=== PATIENT | male | born 1945 | race Caucasian/White ===

== ENCOUNTER → 2018-10-04 09:28 | Outpatient (POV) | payer MEDICARE, BC, SELFPAY | PROVIDERS: Visit Provider Dermatology | DX: Z00.00 Encounter for general adult medical examination without abnormal findings (principal) ==

== ENCOUNTER 2020-09-01 09:37 | Emergency (ER) | payer MEDICARE, BC, SELFPAY ==
[2020-09-01 09:48] VITALS: BP 124/74; PULSE 73; RESP 20; TEMP 36.6; O2SAT 96; BMI 26.2
--- NOTE | 2020-09-01 10:18 | HMH.EDUTC ---
[facility] [place] Clinical Impression: Encounter for laboratory testing for COVID-19 virus Disposition: Home, Self-Care Condition on Discharge: Good Instructions: Common Cold, DI for Viral Upper Respiratory Infection -- Adult, Preventing the Spread of Coronavirus Discharge Instructions Additional Instructions: *Monitor Temp, Over the counter Motrin or Tylenol as directed/as needed Tylenol every 4 hours and Motrin every 6 hours (as long as your family doctor has told you that you can take it) for fever or pain. and straight to ER if unable to lower temp less than 101.0 after medication given *Warm salt water gargles may help to soothe the throat *Throat Lozenges *Warm fluids like tea with honey may help to soothe the throat *Sleep elevated *Humidifier/Vaporizer Follow up IMMEDIATELY for new or worsening symptoms or no Noticeable improvement over the next 48-72 hours. 911 for difficulty breathing or swallowing You was tested for today for COVID19 your test result should be back later this evening, you may call back later this evening to see if your test results are back and the result You was given a handout with instructions for Self Quarantine and Self isolation for while you wait on test results and what to do if they are positive Referrals: Tomer Jensen MD [Primary Care Provider] - As needed Time of Disposition: 10:22 Medical Decision Making - Tate Inquiry Pt receiving controlled substance: No Tate was queried for this patient: No Vital Signs: 09/01/20 09:48 Temperature 97.9 F Temperature Source Oral Pulse Rate [Radial] 73 Respiratory Rate 20 Blood Pressure [Right Arm] 124/74 Blood Pressure Mean [Right Arm] 90 Blood Pressure Source [Right Arm] Automatic Cuff Blood Pressure Position [Right Arm] Sitting 02 Sat by Pulse Oximetry 96 Oxygen Delivery Method Room Air Orders (Tests/Meds): ORDERS Category Date Time Status Covid-19 Nasal PCR ([facility]) Routine Lab 09/01/20 09:47 Received [facility] [place] - General Stated complaint: covid test Time Seen by Provider: 09/01/20 10:18 Mode of Arrival: Ambulatory Source of Information: Patient Limitations: No Limitations Description of Symptoms (Recalled from Triage Doc. by RN): Has a cold and just wants to make sure he doesn't have COVID HEENT Symptoms (Recalled from RN notes): Yes Resp Symptoms (Recalled from RN notes): No Skin Symptoms (Recalled from RN notes): No MS Symptoms (Recalled from RN notes): No Functional Status (Recalled from RN notes): wnl - History of Present Illness Provider Complaint: Patient states that he has had a little cold states that he hasnt had any exposure to COVID that he is aware of but wanted to get checked to make sure that he doesnt have it or spreading it to anyone so he come in to get checked - Related Data Allergies Allergy/AdvReac Type Severity Reaction Status Date / Time No Known Allergies Allergy Unknown Uncoded 10/19/17 14:37 - Worker's Comp Is this a Worker's Comp case?: No [facility] History - Hepatitis A Screen Drug use history?: No High risk sexual behaviors?: No History of sexually transmitted infection?: No Currently employed?: No Childcare worker?: No Do you have indoor plumbing?: Yes Do you have electricity?: Yes Attestation statement:: This patient has been screened for Hepatitis A risk factors. I have reviewed the patient's past medical history: Yes - Social History Alcohol Intake: never Occupational Status: retired ROS Obtained: Yes All systems reviewed & no additional complaints, Yes Systems reviewed as appropriate & no additional complaints - Constitutional Constitutional: Reports system reviewed and no additional complaints, except as docu, Denies body ache, Denies chills, Denies fever(s), Denies headache(s) - ENT Ears, Nose, Mouth, and Throat: Reports system reviewed and no additional complaints, except as docu, Reports nasal congestion, Reports nasal discharge, Denies sinus pain, D
[2020-09-01 10:32] VITALS: BP 124/74; PULSE 73; RESP 20; TEMP 36.6; O2SAT 96
== END 2020-09-01 10:33 | disposition home or self-care (01) ==
PROVIDERS: Emergency Provider Nurse Practitioner; PCP Family Medicine
DX: Z20.828 Contact with and (suspected) exposure to other viral communicable diseases (principal)
CPT/HCPCS: 99201; U0003

== ENCOUNTER 2020-12-05 08:00 | Outpatient (RCR) | payer MEDICARE, BC, SELFPAY | END 2020-12-05 08:05 | disposition home or self-care (01) | LOC: PT 08:00 | PROVIDERS: PCP Family Medicine; Visit Provider Orthopaedic Surgery | DX: M25.562 Pain in left knee (principal); M25.561 Pain in right knee; Z96.653 Presence of artificial knee joint, bilateral | CPT/HCPCS: 97010; 97014; 97110; 97140; 97163; 97164; 97530; G0283 ==

== ENCOUNTER → 2021-03-12 08:28 | Outpatient (CLI) | payer MEDICARE, BC, SELFPAY ==
[2021-03-12 08:32] LABS: Adenovirus F 40/41, stool Not Detected (NotDetected); Astrovirus Not Detected (NotDetected); Campylobacter Not Detected (NotDetected); Clostridium Difficile A/B, PCR Not Detected (NotDetected); Cryptosporidium Not Detected (NotDetected); Cyclospora Cayetanesis Not Detected (NotDetected); Entamoeba histolytica Not Detected (NotDetected); Enteroaggregative E coli Not Detected (NotDetected); Enteropathogenic E coli Not Detected (NotDetected); Enterotoxigenic E coli Not Detected (NotDetected); Giardia lamblia Not Detected (NotDetected); Norovirus Not Detected (NotDetected); Plesimonas Shigalloides, PCR Not Detected (NotDetected); Rotavirus A Not Detected (NotDetected); Salmonella, PCR Not Detected (NotDetected); Sapovirus Not Detected (NotDetected); Shiga-like toxin E coli Not Detected (NotDetected); Shigella Enterovasive E coli Not Detected (NotDetected); Vibrio Cholerae Not Detected (NotDetected); Vibrio, PCR Not Detected (NotDetected); Yersinia Entercolitica, PCR Not Detected (NotDetected)
== END ==
PROVIDERS: Visit Provider Family Medicine
DX: R19.7 Diarrhea, unspecified (principal)
CPT/HCPCS: 87506

== ENCOUNTER → 2021-05-05 09:40 | Outpatient (CLI) | payer MEDICARE, BC, SELFPAY | PROVIDERS: Visit Provider Surgery | DX: Z01.812 Encounter for preprocedural laboratory examination (principal); Z12.11 Encounter for screening for malignant neoplasm of colon; Z20.822 Contact with and (suspected) exposure to COVID-19; R19.7 Diarrhea, unspecified | CPT/HCPCS: U0003 ==

== ENCOUNTER 2021-05-07 06:28 | Day surgery (SDC) | payer MEDICARE, BC, SELFPAY ==
[2021-04-30 13:58] VITALS: BMI 26.2
[2021-05-07] VITALS (7 sets, daily range): BP systolic 107–136; BP diastolic 71–81; PULSE 61–81; RESP 16–18; TEMP 36.1–36.6; O2SAT 92–96
--- NOTE | 2021-05-07 07:50 | HMH.SCOPE ---
- Procedure: Date: 05/07/21 Patient Date of :: 1945 Procedure Performed:: Total colonoscopy to terminal ileum with biopsies Indications:: Patient is a 75-year-old male referred by Dr. Jensen for colonoscopy. Patient states that for about 6 weeks he has been having diarrhea and multiple loose stools per day. He states that he was checked for stool infection which was negative. He denies pain. Denies bleeding. He did undergo colonoscopy by Dr. Ordaz on 11/26/2005 and had a hyperplastic polyp removed from the descending colon and interestingly 3-year follow-up colonoscopy was recommended. Dr. Ordaz performed colonoscopy attempt on 01/10/2015 and he had some diverticulosis but could not advance the colonoscope proximal to 50 cm. Patient underwent barium enema which was negative. Performing Provider:: Matheus Carr MD Referring Provider:: Noah Jensen MD Sedation:: MAC sedation Procedure:: Patient was taken to endoscopy procedure room. He was positioned in lateral decubitus position. Adequate intravenous sedation was achieved. Digital examination was performed which revealed normal sphincter tone. He did have rather large, uniformly enlarged, firm prostate. Variable stiffness Olympus colonoscope was inserted via the anus. Was advanced to the cecum. Colonic preparation was good. Ileocecal valve and appendiceal orifice were clearly identified. Colonoscope was advanced into the terminal ileum which appeared grossly normal. As the colonoscope was slowly withdrawn through the colon careful surveillance was carried out. Due to his history random right and left biopsies were obtained to assess for microscopic colitis. However colonic mucosa appeared normal. There was a minor mucosal irregularity at the sigmoid which was biopsied with cold biopsy forceps and sent as sigmoid biopsy. There were a few sigmoid diverticuli. Retroflexion within the rectum revealed no evidence of any pathologic internal hemorrhoids. Colonoscope was withdrawn. Findings:: Rare sigmoid diverticulosis Firm uniformly enlarged prostate Otherwise normal colonoscopy to terminal ileum Recommendations:: No obvious source for the alteration of bowel habits on his colonoscopy. It is possible he could have some degree of intermittent partial sigmoid volvulus. Complications:: None immediately apparent Estimated blood obtained (mL): 3
--- NOTE | 2021-05-07 08:04 | P.PN_ITS ---
[facility] Anesthesia Checklist - Patient Identification Patient Identification: Arm Band - Structural Data Admitted From: Home Planned Operative Procedure/s: Colonoscopy Consent for Planned Operative Procedure(s) Verified: Yes Verified Documents: Surgical Consent, History and Physical - NPO Status Verified Time NPO: 00:00 - Airway Assessment C-Spine Mobility Assessed: Yes TMJ Mobility Assessed: Yes Dentition: Good Dentition - Neurological Assessment Level of Consciousness: Awake, Alert - Anesthesia Plan Anesthesia Risk discussed: Yes Anesthesia Plan: Verified Anesthesia Type: MAC [facility] History Medical History: Reports:: Gastroesophageal Reflux Disease(GERD), Hyperlipidemia Denies:: Cancer, Diabetes Mellitus Type 1, Diabetes Mellitus Type 2, MRSA, Seizures *Have you ever received a pneumonia vaccine?: Yes *Have you received a flu vaccine this season?: Yes Anesthesia experience/problems:: None Laterality Cases: Bilateral: Total Knee Replacement Other Surgeries: Yes: Colonoscopy Amputation: No Fractures: No - *Social History Smoking Status: Never smoker Alcohol Intake: never Alcohol Intake Frequency:: holidays/special occasions only Substance Use Type: denies use *Occupational Status:: retired Housing: house Household Members: spouse *Travel in the last 8 weeks: None Family Hx:: No significant family history
== END 2021-05-07 08:44 | disposition home or self-care (01) ==
LOC: OUTP 06:30
PROVIDERS: PCP Family Medicine; Visit Provider Surgery
PROC: 0DJD8ZZ Inspection of Lower Intestinal Tract, Via Natural or Artificial Opening Endoscopic (ICD-10-PCS; principal; 2021-05-07 07:30)
DX: K57.30 Diverticulosis of large intestine without perforation or abscess without bleeding (principal); K59.1 Functional diarrhea; Z79.899 Other long term (current) drug therapy; N40.0 Benign prostatic hyperplasia without lower urinary tract symptoms
CPT/HCPCS: 45380; 88305

== ENCOUNTER → 2021-12-02 13:41 | Outpatient (CLI) | payer MEDICARE, BC, SELFPAY | PROVIDERS: PCP Psychiatry & Neurology Sleep Medicine; Visit Provider Nurse Practitioner | DX: Z20.822 Contact with and (suspected) exposure to COVID-19 (principal) | CPT/HCPCS: C9803; U0003; U0005 ==

== ENCOUNTER → 2022-10-06 08:04 | Outpatient (POV) | payer MEDICARE, BC, SELFPAY | PROVIDERS: Visit Provider Dermatology | DX: Z00.00 Encounter for general adult medical examination without abnormal findings (principal) ==

== ENCOUNTER 2022-11-05 12:09 | Emergency (ER) | payer MEDICARE, BC, SELFPAY ==
--- NOTE | 2022-11-05 12:09 | ECG_ITS ---
APPROVED REPORT Exam: Resting ECG HR:59 bpm ECG Measurements Heart Rate [address] 169 P 38 QRSd 97 QRS 35 QT 387 T 50 QTc 386 Conclusion SINUS BRADYCARDIA BORDERLINE ECG UNCONFIRMED REPORT Electronically signed by : Bakari Dickerson MD 11/06/2022 21:16:53
[2022-11-05 12:12] VITALS: BMI 25.8
--- NOTE | 2022-11-05 12:12 | XR_ITS ---
FINAL REPORT CLINICAL HISTORY: CHEST PAIN FINDINGS: 2 views of the chest were obtained. The heart size is normal. The mediastinum is unremarkable. The lungs are clear. There are no pleural effusions. There is no pneumothorax. There is no acute osseous abnormality. IMPRESSION: No acute cardiopulmonary process. Reviewed, Interpreted and Dictated by Tomer Doan MD Transcribed by Desi Wang Authenticated and . [facility]
--- NOTE | 2022-11-05 12:14 | HMH.EDGENADL ---
Discharge Plan Disposition Patient Disposition: Home, Self-Care Condition: Good Chief Complaint: Chest Pain Prescriptions Prescriptions: No Action omeprazole 40 mg capsule,delayed release(DR/EC) 40 mg PO DAILY Label Comments: TAKE 1 CAPSULE BY MOUTH EVERY DAY AT BEDTIME atorvastatin 20 mg tablet 20 mg PO DAILY tamsulosin 0.4 mg capsule 0.4 mg PO DAILY aspirin 81 mg tablet,delayed release (DR/EC) 81 mg PO DAILY Referrals Follow up/Referrals: Tomer Jensen MD [Primary Care Provider] - See instructions Toby Macedo MD [Staff Physician] - See instructions Clinical Impressions Clinical Impression: Chest pain Instructions Patient Instructions: DI for Chest Pain Discharge ED Provider: Alexandre Webb General Adult HPI General Chief complaint: Chest Pain Stated complaint: CP Time Seen by Provider: 11/05/22 12:13 Mode of Arrival: Ambulatory History of Present Illness HPI narrative: 77-year-old male, denies any significant prior cardiac history. States he had a normal stress test a few years ago, has never had heart catheterization or other cardiac testing. He has medical history of hyperlipidemia, denies any diagnosed hypertension, diabetes, and is not a smoker. He presents with left-sided chest pain onset at rest approximately 9 AM this morning or about 3.5 hours ago. Radiates slightly to the left shoulder, is nonexertional. He denies any shortness of breath, nausea, vomiting, diaphoresis, palpitations or other symptoms. He was given 324 mg of aspirin here otherwise no treatments prior to evaluation here Related Data Home Medications Medication Instructions Recorded Confirmed aspirin 81 mg tablet,delayed 81 mg PO DAILY heart health 04/11/21 06/02/21 release atorvastatin 20 mg tablet 20 mg PO DAILY Cholesterol 04/11/21 06/02/21 omeprazole 40 mg capsule,delayed 40 mg PO DAILY GERD 04/11/21 06/02/21 release tamsulosin 0.4 mg capsule 0.4 mg PO DAILY bph 04/11/21 06/02/21 Allergies Allergy/AdvReac Type Severity Reaction Status Date / Time No Known Allergies Allergy Verified 06/02/21 09:49 [facility] Disclaimer: The information contained in this section may have been updated after the patient was seen, as this information can be updated by other users. Social History Smoking Status: Never smoker alcohol intake: never substance use type: denies use current occupational status: retired Travel in the last 8 weeks: None household members: spouse housing: house current occupational exposures/hazards: No caffeine: Yes ROS Obtained: Yes Systems reviewed as appropriate & no additional complaints except as documented Constitutional Constitutional: Reports system reviewed and no additional complaints, except as documented Eyes Eyes: Reports system reviewed and no additional complaints, except as documented ENT Ears, Nose, Mouth, and Throat: Reports system reviewed and no additional complaints, except as documented Cardiovascular Cardiovascular: Reports system reviewed and no additional complaints, except as documented Respiratory Respiratory: Reports system reviewed and no additional complaints, except as documented Gastrointestinal Gastrointestingal: Reports system reviewed and no additional complaints, except as documented Genitourinary Male Genitourinary: Reports system reviewed and no additional complaints, except as documented Musculoskeletal Musculoskeletal: Reports system reviewed and no additional complaints, except as documented Integumentary/Breasts Skin/Breast: Reports system reviewed and no additional complaints, except as documented Neurologic Neurologic: Reports system reviewed and no additional complaints, except as documented Endocrine Endocrine: Reports system reviewed and no additional complaints, except as documented Hematologic/Lymphatic Henatologic/Lymphatic: Reports sy
[2022-11-05 12:17] VITALS: BP 162/89; PULSE 67; RESP 18; TEMP 36.9; O2SAT 97; BMI 25.8
[2022-11-05 12:26] VITALS: PULSE 67
--- NOTE | 2022-11-05 12:26 | PC.NURSE ---
patient to radiology via WC with auto technician mechanic
--- NOTE | 2022-11-05 12:26 | PC.NURSE ---
PT TRANSPORTED TO RADIOLOGY VIA WHEELCHAIR.
--- NOTE | 2022-11-05 12:30 | PC.NURSE ---
patient returned from radiology via WC with hvac service tech
[2022-11-05 12:37] LABS: Chloride 105 mmol/L (98-107); Potassium 4.3 mmoL/L (3.5-5.1); Sodium 139 mmol/L (136-145)
[2022-11-05 12:39] LABS: Basophils # 0.1 K/mm3 (0-0.2); Basophils % 1.1 % (0.1-2.0); Eosinophils # 0.3 K/mm3 (0.0-0.4); Eosinophils % 4.4 % (0.1-12.0); Hematocrit 48.1 % (42.0-52.0); Hemoglobin 16.4 g/dL (14.1-18.0); Lymphocytes # 2.2 K/mm3 (0.7-4.5); Lymphocytes % 27.5 % (10-50); Mean Corpuscular Hemoglobin 31.5 pg (27.0-31.2); Mean Corpuscular Volume 92.5 fl (80-94); Mean Platelet Volume 7.3 fl (7.4-10.4); Monocytes # 0.6 K/mm3 (0.1-1.0); Monocytes % 7.2 % (1.7-9.3); Neutrophils # 4.7 K/mm3 (1.8-7.8); Neutrophils % 59.8 % (37.0-80.0); Platelet Count 243 K/mm3 (142-424); Red Cell Distribution Width 13.3 % (11.5-17.5); White Blood Count 7.8 K/mm3 (4.8-10.8)
[2022-11-05 12:40] LABS: Alanine Aminotransferase 27 U/L (12-78); Albumin Level 4.3 g/dl (3.5-5.0); Albumin/Globulin Ratio 1.3 (1.1-1.8); Alkaline Phosphatase 117 U/L (38-126); Anion Gap 10.3 mEq/L (5-15); Aspartate Amino Transferase 35 U/L (17-59); Blood Urea Nitrogen 14 mg/dl (9-20); Calcium 9.7 mg/dl (8.4-10.2); Carbon Dioxide 28 mmol/L (22.0-30.0); Creatinine Clearance Estimated 74 mL/min (50-200); Estimated Glomerular Filt Rate 82 ml/min (>60); GFR (African American) 100 ML/MIN (>60); Globulin 3.2 g/dL (1.3-3.2); Glucose 96 mg/dl (74-100); Total Protein,Serum 7.5 g/dl (6.3-8.2)
[2022-11-05 12:47] VITALS: BP 130/86; PULSE 60; RESP 12; O2SAT 97
[2022-11-05 12:53] LABS: Troponin I < 0.01 ng/ml (0.00-0.034)
[2022-11-05 13:00] VITALS: BP 134/81; PULSE 63; O2SAT 95
[2022-11-05 13:30] VITALS: BP 131/81; PULSE 62; RESP 16; O2SAT 95
--- NOTE | 2022-11-05 14:29 | PC.NURSE ---
pt aware that we are just waiting on 2nd troponin at this time.
--- NOTE | 2022-11-05 14:44 | PC.NURSE ---
Called lab to check on 2nd troponin result status
--- NOTE | 2022-11-05 14:49 | PC.NURSE ---
Lab reports they put the 2nd troponin blood tube in the rack instead of running it, so they are running it now and it will take approximately 20 mins for results
[2022-11-05 15:06] LABS: Troponin I < 0.01 ng/ml (0.00-0.034)
[2022-11-05 15:28] VITALS: BP 131/81; PULSE 62; RESP 16; TEMP 36.7
== END 2022-11-05 15:30 | disposition home or self-care (01) ==
PROVIDERS: Emergency Provider Emergency Medicine; PCP Family Medicine
DX: R07.89 Other chest pain (principal); E78.5 Hyperlipidemia, unspecified
CPT/HCPCS: 71046; 80053; 84484; 85025; 93005; 99285

== ENCOUNTER → 2023-09-27 13:43 | Outpatient (CLI) | payer MEDICARE, BC, SELFPAY ==
--- NOTE | 2023-09-27 13:47 | XR_ITS ---
FINAL REPORT CLINICAL HISTORY: RT SHOULDER PAIN FINDINGS: Right shoulder Three views were obtained. There is no acute fracture or dislocation. There are mild degenerative changes. No soft tissue abnormality is identified. IMPRESSION: No acute process. Reviewed, Interpreted and Dictated by Tomer Doan MD Transcribed by Guerline Moraes Authenticated and . [facility]
== END ==
PROVIDERS: PCP Family Medicine; Visit Provider Nurse Practitioner Family
DX: M25.511 Pain in right shoulder (principal)
CPT/HCPCS: 73030

== ENCOUNTER 2023-11-02 10:25 | Outpatient (CLI) | payer MEDICARE, BC, SELFPAY ==
--- NOTE | 2023-11-02 10:31 | MR_ITS ---
FINAL REPORT CLINICAL HISTORY: INJURY OF RIGHT SHOULDER. Pain in shoulder COMPARISON: None FINDINGS: Multiplanar MR imaging of the right shoulder was performed without contrast. There is motion on many sequences which somewhat limits overall image quality. There is a full-thickness tear of the footplate of the supraspinatus tendon. There is also a partial tear of the articular surface of the infraspinatus tendon involving greater than 50% of the thickness of that tendon. Moderate acromioclavicular degenerative changes present. Moderate fluid is present in the subacromial subdeltoid bursa as well as in the glenohumeral joint. There is labral degeneration present without a tear. The long head of the biceps tendon is intact. There is no evidence of fracture or dislocation. There are several subchondral cysts present in the superior aspect of the humeral head. The musculature is intact. There is no evidence of soft tissue mass. IMPRESSION: Full-thickness tear footprint of the supraspinatus tendon, as well as a partial-thickness articular surface tear of the infraspinatus tendon involving greater than 50% of the thickness of that tendon. Moderate fluid in the subacromial subdeltoid bursa and the glenohumeral joint. Labral degeneration is present without a tear. Moderate acromioclavicular degenerative change. Reviewed, Interpreted and Dictated by Matheus Terrazas III, MD Transcribed by Missy Alas Authenticated and . [facility]
== END 2023-11-02 23:59 ==
LOC: RAD 10:27
PROVIDERS: PCP Physician Assistant; Visit Provider Physician Assistant
DX: S49.91XA Unspecified injury of right shoulder and upper arm, initial encounter (principal); Y99.9 Unspecified external cause status
CPT/HCPCS: 73221

== ENCOUNTER 2023-12-21 08:00 | Outpatient (RCR) | payer MEDICARE, BC, SELFPAY | END 2023-12-21 09:45 | disposition home or self-care (01) | LOC: OT 08:00 | PROVIDERS: PCP Physician Assistant; Visit Provider Orthopaedic Surgery | DX: M25.511 Pain in right shoulder (principal); M75.101 Unspecified rotator cuff tear or rupture of right shoulder, not specified as traumatic | CPT/HCPCS: 97010; 97014; 97110; 97140; 97166; G0283 ==